=== PATIENT | male | born 1975 ===

== ENCOUNTER → 2021-02-19 | Outpatient (CLI) | payer OTHER | END | disposition home or self-care (01) | LOC: PPH VACUNA | DX: Z23 Encounter for immunization (principal) ==

== ENCOUNTER 2021-03-11 08:50 | Outpatient (CLI) | payer OTHER | END 2021-03-11 08:55 | disposition home or self-care (01) | LOC: PPH VACUNA 08:50 | DX: Z23 Encounter for immunization (principal) ==